=== PATIENT | male | born 1955 | race Asian ===

== ENCOUNTER 2024-03-30 15:10 | Emergency (ER) | payer OTHER, SELFPAY ==
[2024-03-30 15:15] LABS: Glucose - Point of Care 159 mg/dl (70-99)
[2024-03-30 15:17] VITALS: BP 152/73
[2024-03-30 15:19] VITALS: BP 152/73
[2024-03-30 15:20] VITALS: BMI 20.7
[2024-03-30 15:39] LABS: % Basophils 0.2 % (0-2); % Eosinophils 0.2 % (0-6); % Immature Granulocytes 0.4 % (0-0.5); % Lymphocytes 8.3 % (20.5-51.1); % Monocytes 8.7 % (1.7-9.3); % Neutrophils 82.2 % (42.2-75.2); Absolute Lymphocytes 0.8 10^3/uL (1.2-3.4); Absolute Monocytes 0.9 10^3/uL (0.1-0.6); Absolute Neutrophils 8.3 10^3/uL (1.4-6.5); Hematocrit 37.8 % (39.0-52.0); Hemoglobin 12.5 g/dL (13.0-18.0); Mean Corp Hgb Conc. 33.1 g/dL (33.0-37.0); Mean Corpuscular Hgb 27.6 pg (27.0-31.0); Mean Corpuscular Volume 83.4 fL (80.0-94.0); Mean Platelet Volume 10.2 fL (7.4-10.4); Nucleated Red Blood Cells % 0 % (-); Platelet Count 266 10^3/uL (130-400); Red Blood Cell Count 4.53 10^6/uL (4.70-6.10); Red Cell Dist. Width 13.7 % (11.5-14.5)
[2024-03-30 16:00] VITALS: BP 165/99
[2024-03-30 16:04] LABS: ALT (SGPT) 17 U/L (0-50); AST (SGOT) 29 U/L (17-59); Albumin 4.9 g/dl (3.5-5.0); Alkaline Phosphatase 54 U/L (38-126); Blood Urea Nitrogen 12 mg/dl (9-20); Calcium 9.7 mg/dl (8.4-10.2); Carbon Dioxide 27 mmol/L (22-30); Chloride 97 mmol/L (98-107); Estimated Creatinine Clearance 90 ml/min; Glucose 136 mg/dl (70-99); Potassium 3.8 mmol/L (3.5-5.1); Sodium 136 mmol/L (135-145); Total Bilirubin 0.4 mg/dl (0.2-1.3); eGFR > 60.00
--- NOTE | 2024-03-30 16:41 | ED.GENMED ---
History of Present Illness
General
Chief Complaint: Blood Sugar Problem
Source: patient and family
Time Seen by Provider: 03/30/24 15:13
History of Present Illness
History of Present Illness:
68yo male history of diabetes who presents after he started to have sweating and change in mental status. EMS arrived and found his blood sugar to be 33. He received oral and IV dextrose and now feels much better. Patient is from [facility] and his
doctor is from [facility]. He typically takes 15 units prior to meals. He took his 15 units and son states he did not eat right away and then became altered before he was able to eat. Son states he only checks his blood sugar maybe once a month. He
does not check it before meals. No recent fevers. No chest pain. No shortness of breath.
Past History
Past History
ED Past Medical History: IDDM
Phy Exam
Physical Exam
Physical Exam:
CONSTITUTIONAL Patient alert and oriented to person, place and time. Well-appearing. Vital signs reviewed.
HEAD atraumatic, normocephalic.
EYES eyelids normal to inspection, Pupils equally round and reactive to light, Extraocular muscles intact, Conjunctiva normal, Sclera normal.
NECK normal range of motion, Trachea midline, no jugular venous distention.
RESPIRATORY CHEST No respiratory distress noted, Chest expansion equal, Bilateral breath sounds clear.
CARDIOVASCULAR regular rate and rhythm, Heart sounds normal.
ABDOMEN abdomen nontender, Bowel sounds normal. No distention.
BACK normal inspection, no obvious deformities
UPPER EXTREMITY range of motion normal, Motor strength normal, no cyanosis, no edema.
LOWER EXTREMITY range of motion normal, Motor strength normal, no cyanosis, no edema.
NEURO Speech normal, No focal motor deficits, [place] coma scale 15, Memory normal, Cranial Nerves intact to screening exam.
SKIN skin warm, dry, and normal in color.
PSYCHIATRIC patient oriented to person place and time, Normal affect.
Course
Orders/Labs/Results
Orders:
Orders
08/20/24 15:28
Complete Blood Count/With Diff Urgent
Comprehensive Metabolic Panel Urgent
Abnormal Lab Results
03/30/24 03/30/24
15:13 15:28
RBC 4.53 L 10^6/uL
(4.70-6.10)
Hgb 12.5 L g/dL
(13.0-18.0)
Hct 37.8 L %
(39.0-52.0)
Absolute Neuts (auto) 8.3 H 10^3/uL
(1.4-6.5)
Absolute Lymphs (auto) 0.8 L 10^3/uL
(1.2-3.4)
Absolute Monos (auto) 0.9 H 10^3/uL
(0.1-0.6)
Neutrophils % 82.2 H %
(42.2-75.2)
Lymphocytes % 8.3 L %
(20.5-51.1)
Chloride 97 L mmol/L
(98-107)
Creatinine 0.6 L mg/dL
(0.7-1.3)
Glucose 136 H mg/dl
(70-99)
POC Glucose 159 H mg/dl
(70-99)
03/30/24 15:28
03/30/24 15:28
Vital Signs
Initial and Last Documented VS:
Initial Vital Signs
Pulse Resp
84 17
03/30/24 15:14 03/30/24 15:14
Last Documented Vital Signs
Temp Pulse Resp BP Pulse Ox
98.2 F 73 12 165/99 100
03/30/24 15:19 03/30/24 16:30 03/30/24 16:30 03/30/24 16:00 03/30/24 15:19
MDM/Problems Addressed
MDM/Problems Addressed:
Acute hypoglycemia
*Pulse Oximetry
Patient hypoxic: no
*Critical Care Note
Total Time (30-74mins, 75-104mins- exclusive of procedures): Not Applicable
Data Reviewed
Source: patient and family
Prescriptions/Medications Considered But Not Given:
Considered additional IV glucose but patient tolerating oral intake
Patient Management
Escalation/DeEscalation of care consider admission/obs:
I advised the patient to drop his dosing to 12 units. I also advised them to check his blood sugar prior to taking insulin. If blood sugar is less than 100 he should take half his dose of insulin. He will follow-up with his doctor.
ED Attending Note
-
Portions of this chart may have been created with voice recognition software.� Occasional wrong word or��sound alike� substitutions may have occurred due to the inherent limitations of voice recognition software.
Discharge Plan
Departure
Patient Disposition: Home (Routine Discharge)
Date of Disposition: 03/30/24
Time of Disposition: 16:51
Patient with high blood pressure during this ER visit?: Yes
Discharge Problem:
Acute hypoglycemia
Instructions: Low Blood Sugar, Adult (DC), BLOOD PRESSURE
Activity Restrictions/Additional Instructions:
Please lower your insulin dosing to 12 units as discussed. Please check your blood sugar prior to administering short acting insulin. If your blood sugar is less than 100, please only take half of what you should. In addition, please stick to a
routine meal schedule. Return immediately for shortness of breath, fevers, weakness or any other concerns. Please call your doctor for follow-up and further advice in the next 24 hours.
Interventions
Interventions:
*Risk Screen - Suicide Last Done: 03/30/24 15:12
*General Assessment Last Done: 03/30/24 15:12
*Neglect/Abuse Screening Last Done: 03/30/24 15:12
ED- Fall Risk Assessment Last Done: 03/30/24 15:12
*ED COVID-19 Vaccine History Last Done: 03/30/24 15:12
ED- Neurological Assessment Last Done: 03/30/24 15:20
Discharge Date and Time
Print Language: UKRAINIAN
[2024-03-30 16:56] VITALS: BP 140/64
[2024-03-30 16:56] LABS: Glucose - Point of Care 260 mg/dl (70-99)
[2024-03-30 17:00] VITALS: BP 141/68
== END 2024-03-30 17:17 | disposition home or self-care (01) ==
LOC: EMR 15:10
PROVIDERS: EMERGENCY PHYSICIAN Emergency Medicine
DX: E11.649 Type 2 diabetes mellitus with hypoglycemia without coma (principal); R61 Generalized hyperhidrosis; R41.82 Altered mental status, unspecified; Z79.4 Long term (current) use of insulin
CPT/HCPCS: 99283; 80053; 82962; 85025